=== PATIENT | female | born 1980 | race Caucasian/White ===

== ENCOUNTER → 2016-12-11 | Outpatient (CLI) | payer OTHER | LOC: ULTRA 12:59 | DX: N83.201 Unspecified ovarian cyst, right side (principal); N85.8 Other specified noninflammatory disorders of uterus ==

== ENCOUNTER 2018-02-12 22:11 | Emergency (ER) | payer OTHER ==
[~2018-02-12] VITALS: Ht 157.5 cm; Wt 54.4 kg
[2018-02-12 22:42] LABS: URINE BILIRUBIN NEGATIVE (Negative); URINE BLOOD NEGATIVE (Negative); URINE CLARITY CLEAR; URINE COLOR YELLOW; URINE GLUCOSE-RANDOM* NEGATIVE (Negative); URINE KETONES TRACE (Negative); URINE NITRITE-REFLEX NEGATIVE (Negative); URINE PROTEIN (DIPSTICK) TRACE (Negative); URINE SPECIFIC GRAVITY 1.015 (1.005-1.035)
[2018-02-12 22:43] LABS: URINE LEUKOCYTES-REFLEX 1+ (Negative)
[2018-02-12 22:57] LABS: SQUAMOUS 4-10 Moderate /LPF (0-3)
[2018-02-12 22:58] LABS: CASTS None Seen /LPF (None Seen); CRYSTALS None Seen /LPF (None Seen); URINE WBC-REFLEX 0-5 Rare /HPF (0-5)
[2018-02-12 22:59] LABS: BACTERIA-REFLEX 1-9 Few /HPF (None Seen); URINE RBC 0-2 Rare /HPF (0-2)
[2018-02-12 23:37] LABS: ABSOLUTE NEUTROPHILS 3.6 thou/uL (1.4-8.2); BASOPHILS 1.1 % (0.0-2.0); EOSINOPHILS 2.1 % (0.0-3.0); HEMATOCRIT 37.1 % (37.0-47.0); HEMOGLOBIN 13.5 gm/dL (12.0-15.0); MCH 34.8 pg (26.0-34.0); MCHC 36.4 g/dL (28.0-37.0); MCV 95.6 fL (80.0-100.0); MONOCYTES 6.3 % (1.0-8.0); PLATELET COUNT 286 thou/uL (150-400); POLYS 47.5 % (36.0-66.0); RBC 3.88 mil/uL (4.20-5.00); RDW 12.1 % (10.5-14.5); WBC 7.5 thou/uL (4.0-11.0)
[2018-02-12 23:54] LABS: CALCIUM 8.5 mg/dL (8.5-10.1); CREATININE 0.9 mg/dL (0.6-1.0); POTASSIUM 3.9 mmol/L (3.5-5.1)
[2018-02-12 23:59] LABS: TOTAL BILIRUBIN 0.6 mg/dL (<0.1-1.0); TOTAL PROTEIN 7.2 g/dL (6.4-8.2)
[2018-02-13] MEDS ORDERED: LEVSIN0.125 MG PO (01:54)
[2018-02-13] MEDS ORDERED: PEPCID20 MG PO (01:54)
[2018-02-13 02:13] LABS: AMP/METHAMP POSITIVE (Negative); BARBITURATES Negative (Negative); BENZODIAZEPINES POSITIVE (Negative); COCAINE Negative (Negative); METHADONE Negative (Negative); OPIATES Negative (Negative); PCP Negative (Negative)
[2018-02-13 02:35] VITALS: BP 115/85
== END 2018-02-13 02:30 | disposition home or self-care (01) ==
LOC: ER 22:11
PROVIDERS: Emergency Medicine
DX: K42.9 Umbilical hernia without obstruction or gangrene (principal); K58.1 Irritable bowel syndrome with constipation; R10.84 Generalized abdominal pain; G89.29 Other chronic pain; Z88.8 Allergy status to other drugs, medicaments and biological substances